=== PATIENT | female | born 1965 | race Caucasian/White ===

== ENCOUNTER 2020-12-17 18:54 | Emergency (ER) | payer OTHER ==
[~2020-12-17] VITALS: Ht 167.6 cm; Wt 102.7 kg
[~2020-12-17 18:54] MED LIST: LOSA50TA2 PO
[2020-12-17 19:24] VITALS: BP 147/69
== END 2020-12-17 21:02 | disposition home or self-care (01) ==
LOC: EMS 18:59
DX: S63.616A Unspecified sprain of right little finger, initial encounter (principal); I10 Essential (primary) hypertension; Z90.89 Acquired absence of other organs; W01.0XXA Fall on same level from slipping, tripping and stumbling without subsequent striking against object, initial encounter; Y93.89 Activity, other specified; Y92.89 Other specified places as the place of occurrence of the external cause; Y99.8 Other external cause status
CPT/HCPCS: 99283